=== PATIENT | male | born 1965 | race Caucasian/White ===

== ENCOUNTER 2022-01-29 02:36 | Inpatient (IN) | payer OTHER ==
[2022-01-29 03:13] VITALS: BMI 44.2
[2022-01-29] MEDS ORDERED: ACETAMINOPHEN 1000 MG/100 ML BAG IVPB ONE (03:25)
[2022-01-29] MEDS ORDERED: ACETAMINOPHEN INJECTION 100 ML IVPB ONE (05:05)
[2022-01-29 05:40] LABS: BASO % 0.4 % (0-2.0); EOS % 3.5 % (0-4.5); HEMATOCRIT 35.2 % (35.4-49); HEMOGLOBIN 11.3 GM/dL (11.7-16.9); LYMPH % 14.4 % (8-40); MCH 26.9 pg (25.7-33.7); MCHC 32.2 g/dl (32.0-35.9); MEAN CELL VOLUME 83.5 fl (80-96); MEAN PLT VOLUME 7.8 fl (7.5-11.1); MONO % 5.8 % (3.8-10.2); NEUT % 75.9 % (42.8-82.8); PLATELET COUNT 236 10^3/uL (134-434); RBC 4.22 M/mm3 (4.00-5.60); WHITE BLOOD COUNT 10.7 K/mm3 (4.0-10.0)
[2022-01-29 06:01] LABS: CALCIUM 8.8 mg/dL (8.5-10.1)
[2022-01-29 06:02] LABS: ALBUMIN 3.2 g/dl (3.4-5.0); BLOOD UREA NITROGEN 23.3 mg/dL (7-18); MAGNESIUM 1.8 mg/dL (1.8-2.4)
[2022-01-29 06:03] LABS: INR 0.98 (0.83-1.09); PROTHROMBIN TIME (PATIENT) 11.3 SEC (9.7-13.0)
[2022-01-29 06:05] LABS: CREATININE 1.3 mg/dL (0.55-1.3)
[2022-01-29 06:06] LABS: ACTIVATED PTT 31.2 SECONDS (25.2-36.5); TOT PROT 6.5 g/dl (6.4-8.2)
[2022-01-29 06:07] LABS: BILIRUBIN,TOTAL 0.3 mg/dL (0.2-1)
[2022-01-29] MEDS ORDERED: CEFTRIAXONE 1,000 MG in DEXTROSE 5%-WATER - 50 ML IVPB ONE (07:05)
[2022-01-29] MEDS ORDERED: CEFTRIAXONE 1 GM/50 ML BAG ONE (07:18)
[2022-01-29] MEDS ORDERED: ATORVASTATIN CA 10 MG TABLET (FP) ONE (10:15)
[2022-01-29] MEDS: ATORVASTATIN CA 10 MG TABLET (FP) PO SCH (10:34)
[2022-01-29] MEDS: LACTATED RINGERS SOLUTION 1,000 ML/1,000 ML INFUS.BAG IV SCH (10:34)
[2022-01-29] MEDS ORDERED: ACETAMINOPHEN 325 MG TABLET (FP) ONE (12:47)
[2022-01-29] MEDS: ACETAMINOPHEN 325 MG TABLET (FP) PO SCH ×2 (13:00→17:04)
[2022-01-29] MEDS: cloZAPine 100 MG TABLET PO SCH (13:11)
[2022-01-29] MEDS ORDERED: HEPARIN NA (PORCINE) 5,000 UNITS/ML 1ML VIAL SQ SCH (14:00)
[2022-01-29 15:27] LABS: EPI CELLS 27 /uL (0-25.1); HYALINE CASTS 14 /uL (0-3.1); PH,URINE 6.5 (5.0-8.0); URINE APPEARANCE TURBID; URINE BACTERIA 1512 /uL (0-1359); URINE BILIRUBIN NEGATIVE (NEGATIVE); URINE COLOR YELLOW; URINE GLUCOSE (UA) NEGATIVE (NEGATIVE); URINE KETONE NEGATIVE (NEGATIVE); URINE LEUK ESTERASE 3+ (NEGATIVE); URINE NITRITE NEGATIVE (NEGATIVE); URINE PROTEIN 2+ (NEGATIVE); URINE WBC 12209 /uL (0-25.8)
[2022-01-29 15:48] LABS: URINE RBC 215 /uL (0-23.9)
[2022-01-29] MEDS: INSULIN SLIDING SCALE (NOVOLOG) 1 VIAL SQ SCH (17:04)
[2022-01-30] MEDS: ACETAMINOPHEN 325 MG TABLET (FP) PO SCH ×4 (00:14→17:14)
[2022-01-30] MEDS: INSULIN SLIDING SCALE (NOVOLOG) 1 VIAL SQ SCH ×5 (00:14→21:23)
[2022-01-30] MEDS: cloZAPine 100 MG TABLET PO SCH ×3 (00:22→21:21)
[2022-01-30] MEDS: LACTATED RINGERS SOLUTION 1,000 ML/1,000 ML INFUS.BAG IV SCH ×2 (06:07→10:09)
[2022-01-30 08:29] LABS: HEMATOCRIT 33.1 % (35.4-49); MCH 27.4 pg (25.7-33.7); MCHC 33.3 g/dl (32.0-35.9); MEAN CELL VOLUME 82.3 fl (80-96); MEAN PLT VOLUME 7.6 fl (7.5-11.1); PLATELET COUNT 245 10^3/uL (134-434); RBC 4.02 M/mm3 (4.00-5.60); RDW 14.1 % (11.9-15.9); WHITE BLOOD COUNT 6.8 K/mm3 (4.0-10.0)
[2022-01-30 08:54] LABS: CALCIUM 8.3 mg/dL (8.5-10.1)
[2022-01-30 08:55] LABS: BLOOD UREA NITROGEN 16.4 mg/dL (7-18)
[2022-01-30] MEDS ORDERED: DEXTROSE 5%-WATER - 50 ML IVPB ONE (09:08)
[2022-01-30] MEDS ORDERED: cefTRIAXone SODIUM 1 GM VIAL ONE (09:08)
[2022-01-30] MEDS: TAMSULOSIN HCL 0.4 MG CAP PO SCH (10:27)
[2022-01-30] MEDS: CEFTRIAXONE 1 GM in DEXTROSE 5%-WATER - 50 ML IVPB SCH (10:28)
[2022-01-30] MEDS: ATORVASTATIN CA 10 MG TABLET (FP) PO SCH (12:24)
[2022-01-30] MEDS ORDERED: ATORVASTATIN CA 10 MG TABLET (FP) PO SCH (22:00)
[2022-01-31] MEDS: ACETAMINOPHEN 325 MG TABLET (FP) PO SCH ×4 (00:28→18:18)
[2022-01-31] MEDS: INSULIN SLIDING SCALE (NOVOLOG) 1 VIAL SQ SCH ×3 (07:23→16:57)
[2022-01-31] MEDS ORDERED: cefTRIAXone SODIUM 1 GM VIAL ONE (08:34)
[2022-01-31] MEDS ORDERED: DEXTROSE 5%-WATER - 50 ML IVPB ONE (08:34)
[2022-01-31] MEDS: LACTATED RINGERS SOLUTION 1,000 ML/1,000 ML INFUS.BAG IV SCH (09:10)
[2022-01-31] MEDS: TAMSULOSIN HCL 0.4 MG CAP PO SCH (09:11)
[2022-01-31] MEDS: CEFTRIAXONE 1 GM in DEXTROSE 5%-WATER - 50 ML IVPB SCH (09:12)
[2022-01-31] MEDS: cloZAPine 100 MG TABLET PO SCH (09:13)
[2022-01-31 11:10] LABS: BASO % 0.7 % (0-2.0); EOS % 6.2 % (0-4.5); HEMATOCRIT 33.6 % (35.4-49); LYMPH % 21.4 % (8-40); MCHC 32.7 g/dl (32.0-35.9); MEAN CELL VOLUME 82.7 fl (80-96); MONO % 4.6 % (3.8-10.2); NEUT % 67.1 % (42.8-82.8); PLATELET COUNT 242 10^3/uL (134-434); RBC 4.07 M/mm3 (4.00-5.60); RDW 14.2 % (11.9-15.9); WHITE BLOOD COUNT 6.1 K/mm3 (4.0-10.0)
[2022-01-31 11:40] LABS: ALBUMIN 2.9 g/dl (3.4-5.0); CALCIUM 8.2 mg/dL (8.5-10.1)
[2022-01-31 11:41] LABS: BLOOD UREA NITROGEN 13.3 mg/dL (7-18); MAGNESIUM 1.9 mg/dL (1.8-2.4)
[2022-01-31 11:44] LABS: BILIRUBIN,TOTAL 0.6 mg/dL (0.2-1)
[2022-01-31 13:57] VITALS: TEMP 98.2
[2022-01-31 18:20] VITALS: BP 148/92; PULSE 97
[2022-01-31] MEDS ORDERED: CEFUROXIME AXETIL 500 MG TABLET PO SCH (22:00)
[2022-01-31] MEDS ORDERED: HEPARIN NA (PORCINE) 5,000 UNITS/ML 1ML VIAL SQ SCH (22:00)
== END 2022-01-31 18:30 | DRG 690 ==
LOC: JER 02:36 → JERBED 07:45 → J7W 16:13
PROVIDERS: ADMIT Internal Medicine; ATTEND Nurse Practitioner Family
DX: N13.6 Pyonephrosis (principal); E11.9 Type 2 diabetes mellitus without complications; E78.5 Hyperlipidemia, unspecified; D72.829 Elevated white blood cell count, unspecified
CPT/HCPCS: 36415; 70450-TC; 71045-TC-FY; 71250-TC; 72125-TC; 72128-TC; 72131-TC; 72170-TC-FY; 73502-TC-RT-FY; 73552-TC-RT-FY; 74176-TC; 76775-TC; 80048; 80053; 81003; 82550; 82962; 83735; 84484; 85025; 85027; 85610; 85730; 87086; 93005; 93010; 97116-GP; 97161-GP; 99285-25; C9803-CS; U0003; U0005

== ENCOUNTER 2022-07-22 13:07 | Emergency (ER) | payer OTHER ==
[2022-07-22 14:10] VITALS: RESP 20; BMI 35.4
[2022-07-22 16:51] VITALS: TEMP 99.3
[2022-07-22 17:18] LABS: EPI CELLS 4 /uL (0-25.1); HYALINE CASTS 2 /uL (0-3.1); PH,URINE 6.5 (5.0-8.0); URINE APPEARANCE TURBID; URINE BILIRUBIN NEGATIVE (NEGATIVE); URINE COLOR YELLOW; URINE GLUCOSE (UA) NEGATIVE (NEGATIVE); URINE KETONE NEGATIVE (NEGATIVE); URINE LEUK ESTERASE 3+ (NEGATIVE); URINE NITRITE POSITIVE (NEGATIVE); URINE PROTEIN 1+ (NEGATIVE); URINE RBC 125 /uL (0-23.9); URINE UROBILINOGEN 0.2 mg/dL (0.2-1.0); URINE WBC 7018 /uL (0-25.8)
[2022-07-22] MEDS ORDERED: CEFUROXIME AXETIL 500 MG TABLET PO ONE (17:22)
[2022-07-22 19:22] LABS: URINE BACTERIA 1326 /uL (0-1359)
[2022-07-22 20:15] VITALS: BP 121/79; PULSE 72
== END 2022-07-22 19:44 | disposition home or self-care (01) ==
LOC: JER 13:07
PROC: 0T9B70Z Drainage of Bladder with Drainage Device, Via Natural or Artificial Opening (ICD-10-PCS; principal; 2022-07-22)
DX: N39.0 Urinary tract infection, site not specified (principal)
CPT/HCPCS: 81003; 87086; 87186; 99283-25

== ENCOUNTER 2023-03-17 04:06 | Inpatient (IN) | payer OTHER ==
[2023-03-17] MEDS ORDERED: VANCOMYCIN 1,000 MG in DEXTROSE 5%-WATER - 250 ML IVPB ONE (06:40)
[2023-03-17] MEDS ORDERED: PIPERACILLIN/TAZOB 3.375 GM 3.375 GM in DEXTROSE 5%-WATER - 50 ML IVPB ONE (06:40)
[2023-03-17 06:54] LABS: BASO % 0.9 % (0-2.0); EOS % 2.6 % (0-4.5); HEMATOCRIT 37.5 % (35.4-49); HEMOGLOBIN 12.2 GM/dL (11.7-16.9); LYMPH % 13.8 % (8-40); MCH 27.1 pg (25.7-33.7); MCHC 32.5 g/dl (32.0-35.9); MEAN CELL VOLUME 83.3 fl (80-96); MEAN PLT VOLUME 8.3 fl (7.5-11.1); MONO % 6.2 % (3.8-10.2); NEUT % 76.5 % (42.8-82.8); PLATELET COUNT 222 10^3/uL (134-434); RDW 14.7 % (11.9-15.9); WHITE BLOOD COUNT 8.4 K/mm3 (4.0-10.0)
[2023-03-17 07:17] LABS: CHLORIDE 108 mmol/L (98-107); POTASSIUM 4.4 mmol/L (3.5-5.1); SODIUM 141 mmol/L (136-145)
[2023-03-17 07:19] LABS: ALBUMIN 3.6 g/dl (3.4-5.0); ANION GAP 7 MMOL/L (8-16); BLOOD UREA NITROGEN 34.1 mg/dL (7-18); CALCIUM 9.3 mg/dL (8.5-10.1); CO2 26 mmol/L (21-32); GLUCOSE,RANDOM 121 mg/dL (74-106)
[2023-03-17 07:22] LABS: CREATININE 1.2 mg/dL (0.55-1.3); SGOT/AST 12 U/L (15-37); SGPT/ALT 19 U/L (13-61)
[2023-03-17 07:24] LABS: BILIRUBIN,TOTAL 0.3 mg/dL (0.2-1); TOT PROT 7.6 g/dl (6.4-8.2)
[2023-03-17 07:25] LABS: ALK PHOS 104 U/L (45-117)
[2023-03-17] MEDS ORDERED: VANCOMYCIN 1 GRAM (PRE-DOCKED) 1,000 MG/250 ML BAG IVPB ONE (07:35)
[2023-03-17] MEDS ORDERED: PIPERACILLIN/TAZOB 3.375 GM 3.375 GM/50 ML BAG IVPB ONE (07:36)
[2023-03-17 07:44] LABS: OPIATES, URI NEGATIVE (NEGATIVE); URINE AMPHETAMINES NEGATIVE (NEGATIVE); URINE BARBITURATES NEGATIVE (NEGATIVE)
[2023-03-17 07:45] LABS: METHADONE, UR NEGATIVE (NEGATIVE); PHENCYCLIDINE,URINE NEGATIVE (NEGATIVE); URINE BENZODIAZEPINES NEGATIVE (NEGATIVE)
[2023-03-17 07:50] LABS: COCAINE, UR NEGATIVE (NEGATIVE)
[2023-03-17 08:29] LABS: EPI CELLS 11 /uL (0-25.1); HYALINE CASTS 3 /uL (0-3.1); PH,URINE 6.5 (5.0-8.0); URINE APPEARANCE TURBID; URINE BACTERIA >9,000 /uL (0-1359); URINE BILIRUBIN NEGATIVE (NEGATIVE); URINE COLOR YELLOW; URINE GLUCOSE (UA) NEGATIVE (NEGATIVE); URINE KETONE NEGATIVE (NEGATIVE); URINE LEUK ESTERASE 3+ (NEGATIVE); URINE NITRITE POSITIVE (NEGATIVE); URINE PROTEIN 2+ (NEGATIVE); URINE RBC 78 /uL (0-23.9); URINE UROBILINOGEN 0.2 mg/dL (0.2-1.0); URINE WBC 3007 /uL (0-25.8)
[2023-03-17 08:43] LABS: N-TERMINAL BNP 65.4 pg/ml (5-125)
[2023-03-17] MEDS ORDERED: LORazepam 2 MG/ML SDV VIAL IVPUSH ONE (11:14)
[2023-03-17] MEDS ORDERED: HALOPERIDOL LACTATE 5 MG/ML IM ONE ×2 (11:14→11:15)
[2023-03-17 14:48] VITALS: BMI 34.6
[2023-03-17] MEDS ORDERED: SODIUM CHLORIDE 1,000 ML IV SCH (17:45)
[2023-03-17] MEDS ORDERED: PIPERACILLIN/TAZOB 4.5 GM 4.5 GM in DEXTROSE 5%-WATER 100 ML IVPB SCH (18:00)
[2023-03-17] MEDS: PIPERACILLIN/TAZOB 3.375 GM 3.375 GM in DEXTROSE 5%-WATER - 50 ML IVPB SCH (18:07)
[2023-03-17] MEDS: LORazepam 2 MG/ML SDV VIAL IM SCH ×2 (18:16→23:00)
[2023-03-17] MEDS: metFORMIN HCL 500 MG TABLET (FP) PO SCH (18:19)
[2023-03-17] MEDS ORDERED: cloZAPine 100 MG TABLET PO SCH (22:00)
[2023-03-17] MEDS: HEPARIN NA (PORCINE) 5,000 UNITS/ML 1ML VIAL SQ SCH (22:54)
[2023-03-18] MEDS: PIPERACILLIN/TAZOB 3.375 GM 3.375 GM in DEXTROSE 5%-WATER - 50 ML IVPB SCH ×3 (01:45→18:44)
[2023-03-18] MEDS: LORazepam 2 MG/ML SDV VIAL IM SCH ×3 (05:02→22:45)
[2023-03-18] MEDS: metFORMIN HCL 500 MG TABLET (FP) PO SCH ×2 (06:38→16:16)
[2023-03-18] MEDS: TAMSULOSIN HCL 0.4 MG CAP PO SCH (10:30)
[2023-03-18] MEDS: HEPARIN NA (PORCINE) 5,000 UNITS/ML 1ML VIAL SQ SCH ×2 (10:30→22:45)
[2023-03-18 10:50] LABS: BASO % 0.5 % (0-2.0); EOS % 4.4 % (0-4.5); HEMATOCRIT 33.8 % (35.4-49); HEMOGLOBIN 10.8 GM/dL (11.7-16.9); LYMPH % 12.9 % (8-40); MCHC 32.1 g/dl (32.0-35.9); MEAN CELL VOLUME 84.2 fl (80-96); MEAN PLT VOLUME 8.7 fl (7.5-11.1); MONO % 6.9 % (3.8-10.2); NEUT % 75.3 % (42.8-82.8); PLATELET COUNT 226 10^3/uL (134-434); RBC 4.02 M/mm3 (4.00-5.60); RDW 15.2 % (11.9-15.9); WHITE BLOOD COUNT 8.4 K/mm3 (4.0-10.0)
[2023-03-18 11:11] LABS: POTASSIUM 4.4 mmol/L (3.5-5.1)
[2023-03-18 11:44] LABS: CALCIUM 8.3 mg/dL (8.5-10.1)
[2023-03-18 11:45] LABS: ALBUMIN 3.1 g/dl (3.4-5.0); BLOOD UREA NITROGEN 33.3 mg/dL (7-18)
[2023-03-18 11:48] LABS: BILIRUBIN,TOTAL 0.4 mg/dL (0.2-1); CREATININE 1.3 mg/dL (0.55-1.3); TOT PROT 6.3 g/dl (6.4-8.2)
[2023-03-18] MEDS: MIDODRINE HCL 5 MG TABLET PO SCH ×2 (15:00→18:44)
[2023-03-18] MEDS: cloZAPine 100 MG TABLET PO SCH (16:16)
[2023-03-18] MEDS: ATORVASTATIN CA 10 MG TABLET (FP) PO SCH (22:45)
[2023-03-19] MEDS ORDERED: PIPERACILLIN/TAZOBACTAM 3.375 GM VIAL IVPB ONE ×2 (00:56→10:52)
[2023-03-19] MEDS: PIPERACILLIN/TAZOB 3.375 GM 3.375 GM in DEXTROSE 5%-WATER - 50 ML IVPB SCH ×2 (01:58→10:54)
[2023-03-19 04:51] VITALS: RESP 18
[2023-03-19] MEDS: LORazepam 2 MG/ML SDV VIAL IM SCH (06:34)
[2023-03-19] MEDS: metFORMIN HCL 500 MG TABLET (FP) PO SCH ×2 (06:34→16:27)
[2023-03-19] MEDS: HEPARIN NA (PORCINE) 5,000 UNITS/ML 1ML VIAL SQ SCH ×2 (10:55→21:15)
[2023-03-19] MEDS: TAMSULOSIN HCL 0.4 MG CAP PO SCH (10:55)
[2023-03-19] MEDS: MIDODRINE HCL 5 MG TABLET PO SCH ×3 (10:55→18:18)
[2023-03-19] MEDS: cloZAPine 100 MG TABLET PO SCH (10:56)
[2023-03-19] MEDS: MEROPENEM 1 GM in DEXTROSE 5%-WATER 100 ML IVPB SCH (18:18)
[2023-03-19] MEDS: ATORVASTATIN CA 10 MG TABLET (FP) PO SCH (21:15)
[2023-03-20] MEDS ORDERED: MEROPENEM 1 GM VIAL (RESTRICTED TO ID) IVPB ONE (01:16)
[2023-03-20] MEDS: MEROPENEM 1 GM in DEXTROSE 5%-WATER 100 ML IVPB SCH ×3 (02:58→17:32)
[2023-03-20] MEDS: LORazepam 2 MG/ML SDV VIAL IM PRN ×2 (04:30→21:59)
[2023-03-20] MEDS: metFORMIN HCL 500 MG TABLET (FP) PO SCH ×2 (06:19→17:31)
[2023-03-20] MEDS: MIDODRINE HCL 5 MG TABLET PO SCH ×3 (09:56→18:00)
[2023-03-20] MEDS: TAMSULOSIN HCL 0.4 MG CAP PO SCH (09:56)
[2023-03-20] MEDS: HEPARIN NA (PORCINE) 5,000 UNITS/ML 1ML VIAL SQ SCH ×2 (10:11→21:58)
[2023-03-20] MEDS: cloZAPine 100 MG TABLET PO SCH (11:06)
[2023-03-20] MEDS: ATORVASTATIN CA 10 MG TABLET (FP) PO SCH (21:59)
[2023-03-21] MEDS: MEROPENEM 1 GM in DEXTROSE 5%-WATER 100 ML IVPB SCH ×2 (01:55→09:54)
[2023-03-21 05:13] VITALS: BP 127/67; PULSE 87; TEMP 98.1
[2023-03-21] MEDS: metFORMIN HCL 500 MG TABLET (FP) PO SCH (07:07)
[2023-03-21] MEDS: TAMSULOSIN HCL 0.4 MG CAP PO SCH (08:39)
[2023-03-21] MEDS: HEPARIN NA (PORCINE) 5,000 UNITS/ML 1ML VIAL SQ SCH (09:53)
[2023-03-21] MEDS: cloZAPine 100 MG TABLET PO SCH (09:54)
[2023-03-21] MEDS: MIDODRINE HCL 5 MG TABLET PO SCH (09:54)
== END 2023-03-21 11:45 | DRG 689 ==
LOC: JER 04:06 → JERBED 08:57 → J6S 14:11
PROVIDERS: ADMIT Internal Medicine; ATTEND Internal Medicine
PROC: 02HV33Z Insertion of Infusion Device into Superior Vena Cava, Percutaneous Approach (ICD-10-PCS; principal; 2023-03-20)
PROC: B548ZZA Ultrasonography of Superior Vena Cava, Guidance (ICD-10-PCS; 2023-03-20)
DX: N39.0 Urinary tract infection, site not specified (principal); G93.41 Metabolic encephalopathy; J18.9 Pneumonia, unspecified organism; E11.9 Type 2 diabetes mellitus without complications; F29 Unspecified psychosis not due to a substance or known physiological condition; E78.5 Hyperlipidemia, unspecified; Z79.4 Long term (current) use of insulin; R62.50 Unspecified lack of expected normal physiological development in childhood; F03.90 Unspecified dementia, unspecified severity, without behavioral disturbance, psychotic disturbance, mood disturbance, and anxiety
CPT/HCPCS: 0241U-QW; 36415; 36569; 70450-TC; 71045-TC-FY; 77001-TC-FY; 80053; 80307; 81003; 82140; 82962; 83880; 84484; 85025; 87040; 87086; 87186; 93005; 93010; 99285-25; C1751; J1644

== ENCOUNTER 2023-07-25 12:31 | Inpatient (IN) | payer OTHER ==
[2023-07-25] MEDS ORDERED: ACETAMINOPHEN 1000 MG/100 ML BAG IVPB ONE (12:50)
[2023-07-25] MEDS ORDERED: SODIUM CHLORIDE 1,000 ML IV STA (12:55)
[2023-07-25] MEDS ORDERED: VANCOMYCIN 1,000 MG in DEXTROSE 5%-WATER - 250 ML IVPB ONE (13:32)
[2023-07-25 13:33] LABS: ALLENS TEST POSITIVE; ARTERIAL BLOOD GAS BASE EXCESS -10.4 mmol/L (-2-2); ARTERIAL BLOOD GAS PO2 77.5 mmHg (80-100); ARTERIAL BLOOD GAS pH 7.335 (7.350-7.450)
[2023-07-25 13:34] LABS: PT'S TEMP 100.3
[2023-07-25] MEDS ORDERED: PIPERACILLIN/TAZOB 4.5 GM 4.5 GM in DEXTROSE 5%-WATER 100 ML IVPB ONE (13:37)
[2023-07-25 13:49] LABS: VENOUS BASE EXCESS -12.6 mmol/L (-2-2); VENOUS O2 SATURATION 37.1 % (70-80); VENOUS PCO2 41.2 mmHg (38-52)
[2023-07-25 13:50] LABS: HEMATOCRIT 33.6 % (35.4-49); HEMOGLOBIN 10.7 GM/dL (11.7-16.9); MCH 27.4 pg (25.7-33.7); MCHC 31.9 g/dl (32.0-35.9); RBC 3.91 M/mm3 (4.00-5.60); RDW 14.9 % (11.9-15.9); WHITE BLOOD COUNT 27.2 K/mm3 (4.0-10.0)
[2023-07-25 13:51] LABS: INR 1.18 (0.83-1.09); PROTHROMBIN TIME (PATIENT) 13.7 SEC (9.7-13.0)
[2023-07-25 13:51] LABS: PLATELET COUNT 128 10^3/uL (134-434)
[2023-07-25 13:51] LABS: VENOUS PH 7.18 (7.310-7.410)
[2023-07-25 13:54] LABS: ACTIVATED PTT 31.4 SECONDS (25.2-36.5)
[2023-07-25] MEDS ORDERED: PIPERACILLIN/TAZOB 4.5 GM 4.5 GM/100 ML BAG IVPB ONE (14:10)
[2023-07-25] MEDS ORDERED: VANCOMYCIN 1 GRAM (PRE-DOCKED) 1,000 MG/250 ML BAG IVPB ONE (14:10)
[2023-07-25] MEDS ORDERED: ACETAMINOPHEN INJECTION 100 ML IVPB ONE (14:10)
[2023-07-25 14:11] LABS: POTASSIUM 5.1 mmol/L (3.5-5.1)
[2023-07-25 14:13] LABS: CALCIUM 8.6 mg/dL (8.5-10.1)
[2023-07-25 14:14] LABS: ALBUMIN 2.7 g/dl (3.4-5.0)
[2023-07-25 14:17] LABS: CREATININE 5.4 mg/dL (0.55-1.3)
[2023-07-25 14:18] LABS: TOT PROT 6.4 g/dl (6.4-8.2)
[2023-07-25 14:19] LABS: BILIRUBIN,TOTAL 0.4 mg/dL (0.2-1)
[2023-07-25 14:27] LABS: ANISOCYTOSIS 1+; LACTIC ACID 8.9 mmol/L (0.4-2.0); MACROCYTOSIS 0
[2023-07-25] MEDS ORDERED: ETOMIDATE 40 MG/20 ML VIAL IVPUSH ONE ×2 (15:31→15:44)
[2023-07-25] MEDS ORDERED: ROCURONIUM BROMIDE 50 MG/5 ML SYRINGE ONE (15:31)
[2023-07-25] MEDS ORDERED: NOREPINEPHRINE BITARTRATE/D5W 8 MG/250 ML BAG IVPB ONE (15:40)
[2023-07-25] MEDS ORDERED: PANTOPRAZOLE SODIUM 40 MG/100 ML BAG IVPB ONE (16:02)
[2023-07-25] MEDS ORDERED: NOREPINEPHRINE BITARTRATE 4,000 MCG in DEXTROSE 5%-WATER - 496 ML IV SCH (16:15)
[2023-07-25] MEDS ORDERED: MEROPENEM 1 GM in DEXTROSE 5%-WATER 100 ML IVPB ONE ×2 (16:31→18:00)
[2023-07-25 16:54] VITALS: BMI 34.0
[2023-07-25] MEDS ORDERED: FENTANYL IVPB 500 MCG/100 ML BAG IVPB SCH (17:00)
[2023-07-25] MEDS ORDERED: FENTANYL NS IVPB 500 MCG/100 ML BAG IVPB ONE (17:07)
[2023-07-25 17:12] LABS: VENOUS BASE EXCESS -12.4 mmol/L (-2-2); VENOUS O2 SATURATION 33.7 % (70-80); VENOUS PCO2 68.1 mmHg (38-52)
[2023-07-25 17:14] LABS: VENOUS PH 7.032 (7.310-7.410)
[2023-07-25 18:00] LABS: LACTIC ACID 7.7 mmol/L (0.4-2.0)
[2023-07-25] MEDS ORDERED: MEROPENEM 1 GM in DEXTROSE 5%-WATER 100 ML IVPB SCH (18:00)
[2023-07-25] MEDS ORDERED: LACTATED RINGERS SOLUTION 1,000 ML/1,000 ML INFUS.BAG IV STA (18:22)
[2023-07-25 18:49] VITALS: TEMP 98
[2023-07-25 18:51] VITALS: BP 106/56; PULSE 114; RESP 29
[2023-07-25] MEDS ORDERED: PROPOFOL 1,000,000 MCG/100 ML VIAL IVPB SCH (19:00)
[2023-07-25] MEDS ORDERED: EPINEPHrine 1:10,000 (P-F SYR) 1 MG/10 ML DISP.SYRIN ONE (19:10)
[2023-07-25] MEDS ORDERED: VASOPRESSIN 20 UNITS/ML VIAL IV ONE (19:11)
[2023-07-25] MEDS ORDERED: SODIUM BICARBONATE 8.4% 50 MEQ/50 ML DISP.SYRIN ONE (19:12)
[2023-07-25] MEDS ORDERED: VASOPRESSIN 40 UNITS/100 ML BAG IV SCH (19:15)
[2023-07-25] MEDS ORDERED: MUPIROCIN 2% TOPICAL OINTMENT FOR DECOLONIZATION NS SCH (22:00)
[2023-07-25] MEDS ORDERED: INSULIN SLIDING SCALE (NOVOLOG) 1 VIAL SQ SCH (22:00)
[2023-07-25] MEDS ORDERED: CHLORHEXIDINE GLUCONATE 4% CLEANSER FOR DECOLONIZATION TP SCH (22:00)
[2023-07-25] MEDS ORDERED: HEPARIN NA (PORCINE) 5,000 UNITS/ML 1ML VIAL SQ SCH (22:00)
[2023-07-26] MEDS ORDERED: PANTOPRAZOLE SODIUM 40 MG VIAL IVPUSH SCH (10:00)
[2023-07-26] MEDS ORDERED: MEROPENEM 1 GM in DEXTROSE 5%-WATER 100 ML IVPB SCH (18:00)
== END 2023-07-25 19:36 | disposition expired | DRG 871 ==
LOC: JER 12:31 → JICU 16:53
PROVIDERS: ADMIT Internal Medicine Pulmonary Disease; ATTEND Internal Medicine Pulmonary Disease
PROC: 06HN33Z Insertion of Infusion Device into Left Femoral Vein, Percutaneous Approach (ICD-10-PCS; principal; 2023-07-25)
PROC: B54CZZA Ultrasonography of Left Lower Extremity Veins, Guidance (ICD-10-PCS; 2023-07-25)
PROC: 0BH17EZ Insertion of Endotracheal Airway into Trachea, Via Natural or Artificial Opening (ICD-10-PCS; 2023-07-25)
PROC: 5A1935Z Respiratory Ventilation, Less than 24 Consecutive Hours (ICD-10-PCS; 2023-07-25)
DX: A41.89 Other specified sepsis (principal); J96.01 Acute respiratory failure with hypoxia; R65.21 Severe sepsis with septic shock; N17.9 Acute kidney failure, unspecified; N39.0 Urinary tract infection, site not specified; E11.22 Type 2 diabetes mellitus with diabetic chronic kidney disease; E78.5 Hyperlipidemia, unspecified; F89 Unspecified disorder of psychological development; I95.9 Hypotension, unspecified; R00.1 Bradycardia, unspecified; D64.9 Anemia, unspecified; N18.9 Chronic kidney disease, unspecified; N40.0 Benign prostatic hyperplasia without lower urinary tract symptoms; N31.9 Neuromuscular dysfunction of bladder, unspecified; E66.9 Obesity, unspecified; Z68.34 Body mass index [BMI] 34.0-34.9, adult
CPT/HCPCS: 0241U-QW; 36415; 36600; 71045-TC-FY; 80053; 82803; 82962; 83605; 83880; 84484; 85025; 85610; 85730; 86850; 86900; 86901; 87040; 87186; 93005; 93010; 99291; 99292